=== PATIENT | female | born 2000 | race Caucasian/White ===

== ENCOUNTER → 2020-02-07 16:10 | Outpatient (CLI) | payer OTHER, MEDICAID, SELFPAY ==
[2020-02-07 16:40] LABS: Appearance Urine UA CLEAR; Bilirubin Urine UA NEGATIVE (NEGATIVE); Color Urine UA YELLOW; Glucose Urine UA NEGATIVE (Negative); Ketones Urine UA NEGATIVE (NEGATIVE); Leukocyte Esterase Urine UA 1+ (NEGATIVE); Nitrite Urine UA NEGATIVE (Negative); Occult Blood Urine UA TRACE-INTACT (Negative); Protein Urine UA NEGATIVE (Negative); Urobilinogen Urine UA 0.2 E.U./dL (0.2)
[2020-02-07 17:12] LABS: Bacteria Urine Many (>30); Culture Indicated Urine Specimen Cultured; RBC Urine 5-10/HPF (0-5/HPF); Squamous Epithelial Cell Urine 1-5 /HPF (0-5/HPF); Transitional Epi Cells Urine 5-10/HPF (0-5/HPF); WBC Urine 10-30/HPF (0-5/HPF)
== END ==
PROVIDERS: PCP Registered Nurse Diabetes Educator; Referring Provider Nurse Practitioner; Visit Provider Nurse Practitioner
DX: R30.0 Dysuria (principal)
CPT/HCPCS: 81001; 87086

== ENCOUNTER → 2020-03-19 12:04 | Outpatient (CLI) | payer OTHER, MEDICAID, SELFPAY ==
[2020-03-19 13:47] LABS: TSH w/ Reflex to FT4 0.93 uIU/mL (0.47-4.68)
[2020-03-22 07:09] LABS: Alder IgE <0.10 kU/L (Class 0); Alternaria alternata IgE <0.10 kU/L (Class 0); Aspergillus fumigatus IgE <0.10 kU/L (Class 0); Box Elder IgE <0.10 kU/L (Class 0); Cladosporium herbarum IgE <0.10 kU/L (Class 0); Cockroach IgE <0.10 kU/L (Class 0); Cottonwood IgE <0.10 kU/L (Class 0); D farinae IgE 5.85 kU/L (Class IV); D pteronyssinus IgE 7.44 kU/L (Class IV); Dog Dander IgE <0.10 kU/L (Class 0); Elm Tree IgE <0.10 kU/L (Class 0); Immunoglobulin E 34 IU/mL (6-495); Mountain Cedar IgE <0.10 kU/L (Class 0); Mouse Urine Proteins IgE <0.10 kU/L (Class 0); Nettle IgE <0.10 kU/L (Class 0); Oak Tree IgE <0.10 kU/L (Class 0); Penicillium chrysogen IgE <0.10 kU/L (Class 0); Pigweed, Common IgE <0.10 kU/L (Class 0); Ragweed, Short <0.10 kU/L (Class 0); Sheep Sorrel IgE <0.10 kU/L (Class 0); Silver Birch IgE <0.10 kU/L (Class 0); Walnut Allery IgE 0.12 kU/L (Class 0/I); White ash IgE <0.10 kU/L (Class 0)
[2020-04-20 10:24] LABS: Cat Dander IgE <0.10
== END ==
PROVIDERS: PCP Registered Nurse Diabetes Educator; Referring Provider Registered Nurse Diabetes Educator; Visit Provider Registered Nurse Diabetes Educator
DX: J30.9 Allergic rhinitis, unspecified (principal); R63.5 Abnormal weight gain
CPT/HCPCS: 36415; 82785; 84443; 86003

== ENCOUNTER → 2020-03-29 14:40 | Outpatient (CLI) | payer OTHER, MEDICAID, SELFPAY | PROVIDERS: PCP Registered Nurse Diabetes Educator; Visit Provider Physician Assistant | DX: J02.9 Acute pharyngitis, unspecified (principal) | CPT/HCPCS: 87070 ==

== ENCOUNTER → 2020-04-04 15:16 | Outpatient (CLI) | payer OTHER, MEDICAID, SELFPAY ==
[2020-04-04 17:30] LABS: Urine N gonorrhoeae NOT DETECTED
[2020-04-04 17:36] LABS: Urine Chlamydia NOT DETECTED
== END ==
PROVIDERS: PCP Registered Nurse Diabetes Educator; Referring Provider Registered Nurse Diabetes Educator; Visit Provider Registered Nurse Diabetes Educator
DX: Z91.89 Other specified personal risk factors, not elsewhere classified (principal)
CPT/HCPCS: 87491; 87591

== ENCOUNTER → 2020-05-16 12:10 | Outpatient (CLI) | payer OTHER, MEDICAID, SELFPAY ==
[2020-05-17 03:36] LABS: HSV 2 IGG AB < 0.91 index (0.00-0.90)
[2020-05-17 04:13] LABS: RPR Screen Non Reactive (Non Reactive)
[2020-05-17 16:26] LABS: Hepatitis B Surface Antigen NEGATIVE s/c (NEGATIVE)
[2020-05-17 16:48] LABS: HIV 1 & 2 Ab/Ag 4th Gen Combo NEGATIVE (NEGATIVE); Hep C Virus Ab w/Reflex Quant NEGATIVE s/c (NEGATIVE)
[2020-05-17 18:48] LABS: HSV I/II IgM <0.91 Ratio (0.00-0.90)
== END ==
PROVIDERS: PCP Registered Nurse Diabetes Educator; Referring Provider Registered Nurse Diabetes Educator; Visit Provider Registered Nurse Diabetes Educator
DX: N94.9 Unspecified condition associated with female genital organs and menstrual cycle (principal); Z72.51 High risk heterosexual behavior; Z78.9 Other specified health status
CPT/HCPCS: 36415; 86592; 86694; 86695; 86696; 86803; 87340; 87389

== ENCOUNTER → 2020-05-24 12:43 | Outpatient (CLI) | payer OTHER, MEDICAID, SELFPAY | PROVIDERS: PCP Registered Nurse Diabetes Educator; Visit Provider Specialist | DX: R30.0 Dysuria (principal) | CPT/HCPCS: 87077; 87086; 87186 ==

== ENCOUNTER → 2020-07-14 13:04 | Outpatient (CLI) | payer OTHER, MEDICAID, SELFPAY | PROVIDERS: PCP Registered Nurse Diabetes Educator; Visit Provider Physician Assistant | DX: R30.0 Dysuria (principal) | CPT/HCPCS: 87077; 87086; 87186 ==

== ENCOUNTER → 2020-12-05 11:14 | Outpatient (CLI) | payer OTHER, MEDICAID, SELFPAY ==
[2020-12-05 12:03] LABS: Hematocrit 39.7 % (36-46); Hemoglobin 13.6 g/dL (12.0-16.0); Mean Corpuscular HGB Conc 34.1 % (30-36); Mean Corpuscular Hemoglobin 33.6 PG (26-34); Mean Corpuscular Volume 98.4 fL (80-100); Platelet Count 287 X10^3/uL (150-400); Red Blood Cell Count 4.04 X10^6/uL (4.0-5.2); Red Cell Distribution Width 12.5 % (11.6-14.8); White Blood Cell Count 8.4 X10^3/uL (4.5-11.0)
[2020-12-05 12:14] LABS: Alanine Aminotransferase 13 IU/L (<35); Albumin 4.4 g/dL (3.5-5.0); Albumin Globulin Ratio 1.5 (1.0-2.8); Alkaline Phosphatase 81 U/L (38-126); Aspartate Aminotransferase 23 IU/L (14-36); BUN Creatinine Ratio 22.9 (6-22); Bilirubin Total 0.1 mg/dL (0.2-1.3); Blood Urea Nitrogen 16 mg/dL (7-17); Calcium 9.6 mg/dL (8.4-10.2); Carbon Dioxide 27 mmol/L (22-32); Chloride 105 mmol/L (98-107); Estimated Glomerular Filt Rate > 60.0 mL/min (>60); Globulin 2.9 g/dL (1.7-4.1); Glucose 89 mg/dL (70-100); HEMOLYSIS < 15 (0-50); Potassium 4.3 mmol/L (3.4-5.1); Sodium 140 mmol/L (137-145); Total Protein 7.3 g/dL (6.3-8.2)
== END ==
PROVIDERS: PCP Registered Nurse Diabetes Educator; Referring Provider Registered Nurse Diabetes Educator; Visit Provider Registered Nurse Diabetes Educator
DX: I49.8 Other specified cardiac arrhythmias (principal); Z51.81 Encounter for therapeutic drug level monitoring
CPT/HCPCS: 36415; 80053; 85027

== ENCOUNTER → 2021-01-16 08:41 | Outpatient (CLI) | payer OTHER, MEDICAID, SELFPAY ==
--- NOTE | 2021-01-16 08:43 | DI.RAD.S_ITS ---
PROCEDURE: XR CERVICAL SPINE 2V OR 3V INDICATIONS: neck pain, no trauma TECHNIQUE: 3 view(s) of the cervical spine were acquired. COMPARISON: None. FINDINGS: Bones: No fractures or dislocations to the T1 level. The lateral masses of C1 appear intact on the odontoid view. No suspicious bony lesions. Loss of lordosis which could be related to muscle spasm, rigidity or simply positional. Soft tissues: No prevertebral soft tissue swelling. IMPRESSION: Loss of lordosis; otherwise normal C-spine. Dictated by: Obdulio Harvey [facility] Interpreted: Luis Wu MD on 01/16/2021 at 12:26 Transcribed by: [email or web address] on 01/16/2021 at 12:26 Approved by: Luis Wu M.D. on 01/16/2021 at 14:53
== END ==
PROVIDERS: PCP Registered Nurse Diabetes Educator; Referring Provider Registered Nurse Diabetes Educator; Visit Provider Registered Nurse Diabetes Educator
DX: M54.2 Cervicalgia (principal)
CPT/HCPCS: 72040

== ENCOUNTER → 2021-05-23 12:03 | Outpatient (CLI) | payer OTHER, MEDICAID, SELFPAY ==
[2021-05-23 13:15] LABS: Alanine Aminotransferase 13 IU/L (<35); Albumin 4.7 g/dL (3.5-5.0); Albumin Globulin Ratio 1.9 (1.0-2.8); Alkaline Phosphatase 73 U/L (38-126); Aspartate Aminotransferase 23 IU/L (14-36); BUN Creatinine Ratio 17.4 (6-22); Bilirubin Total 0.2 mg/dL (0.2-1.3); Blood Urea Nitrogen 12 mg/dL (7-17); Calcium 9.8 mg/dL (8.4-10.2); Carbon Dioxide 30 mmol/L (22-32); Chloride 105 mmol/L (98-107); Estimated Glomerular Filt Rate > 60.0 mL/min (>60); Globulin 2.5 g/dL (1.7-4.1); Glucose 83 mg/dL (70-100); HEMOLYSIS < 15 (0-50); Potassium 4.7 mmol/L (3.4-5.1); Sodium 141 mmol/L (137-145); Total Protein 7.2 g/dL (6.3-8.2)
[2021-05-23 13:29] LABS: Free T4, Direct Thyroxine 0.91 ng/dL (0.78-2.19)
[2021-05-23 13:43] LABS: Thyroid Stimulating Hormone 1.55 uIU/mL (0.47-4.68)
== END ==
PROVIDERS: PCP Registered Nurse Diabetes Educator; Referring Provider Nurse Practitioner Psychiatric/Mental Health; Visit Provider Nurse Practitioner Psychiatric/Mental Health
DX: Z51.81 Encounter for therapeutic drug level monitoring (principal); Z79.899 Other long term (current) drug therapy
CPT/HCPCS: 36415; 80053; 84439; 84443

== ENCOUNTER → 2021-07-13 10:43 | Outpatient (CLI) | payer OTHER, MEDICAID, SELFPAY | PROVIDERS: PCP Registered Nurse Diabetes Educator; Visit Provider Physician Assistant | DX: N89.8 Other specified noninflammatory disorders of vagina (principal) | CPT/HCPCS: 81002; 81025; 87210 ==

== ENCOUNTER → 2022-01-29 08:59 | Outpatient (CLI) | payer OTHER, MEDICAID, SELFPAY ==
[2022-01-31 13:09] LABS: Chlamydia trachomatis Negative (Negative); Mycoplasma genitalium Negative (Negative); Neisseria gonorrhoeae Negative (Negative)
== END ==
PROVIDERS: PCP Registered Nurse Diabetes Educator; Visit Provider Specialist
DX: Z11.3 Encounter for screening for infections with a predominantly sexual mode of transmission (principal)
CPT/HCPCS: 81002; 87210; 87491; 87563; 87591

== ENCOUNTER → 2022-04-14 11:02 | Outpatient (CLI) | payer OTHER, MEDICAID, SELFPAY ==
[2022-04-14 11:24] LABS: COVID19 -Nasal RAPID Negative (Negative)
== END ==
PROVIDERS: PCP Registered Nurse Diabetes Educator; Visit Provider Obstetrics & Gynecology
DX: Z20.822 Contact with and (suspected) exposure to COVID-19 (principal); Z01.812 Encounter for preprocedural laboratory examination
CPT/HCPCS: 87635; C9803

== ENCOUNTER → 2022-09-23 10:55 | Outpatient (CLI) | payer OTHER, MEDICAID, SELFPAY | PROVIDERS: PCP Registered Nurse Diabetes Educator; Visit Provider Family Medicine | DX: N89.8 Other specified noninflammatory disorders of vagina (principal) | CPT/HCPCS: 81002; 81025; 87210 ==

== ENCOUNTER → 2023-02-04 16:20 | Outpatient (CLI) | payer OTHER, MEDICAID, SELFPAY ==
--- NOTE | 2023-02-04 16:23 | DI.RAD.S_ITS ---
PROCEDURE: XR KNEE LT 3V INDICATIONS: left knee pain TECHNIQUE: 2 views of the knee were acquired. COMPARISON: None. FINDINGS: Bones: No fractures or dislocations. No suspicious bony lesions. Soft tissues: Small No joint effusion. No suspicious soft tissue calcifications. IMPRESSION: Small knee joint effusion, without displaced fracture. Dictated by: Norman Sung M.D. on 02/05/2023 at 8:54 Approved by: Norman Sung M.D. on 02/05/2023 at 8:54
== END ==
PROVIDERS: PCP Registered Nurse Diabetes Educator; Referring Provider Nurse Practitioner Family; Visit Provider Nurse Practitioner Family
DX: M25.562 Pain in left knee (principal); M25.462 Effusion, left knee
CPT/HCPCS: 73562

== ENCOUNTER → 2023-06-02 08:34 | Outpatient (CLI) | payer OTHER, MEDICAID, SELFPAY | PROVIDERS: PCP Registered Nurse Diabetes Educator; Visit Provider Physician Assistant | DX: R30.0 Dysuria (principal) | CPT/HCPCS: 81002; 81025; 87086 ==

== ENCOUNTER → 2023-10-27 09:31 | Outpatient (CLI) | payer OTHER, MEDICAID, SELFPAY ==
[2023-10-27 10:54] LABS: Add Manual Diff / Slide Review NO; Basophils Absolute Auto 0 /uL (0-100); Basophils Percent Auto 0.6 % (0-2); Eosinophils Absolute Auto 200 /uL (0-450); Eosinophils Percent Auto 2.4 % (2-4); Hematocrit 39.1 % (36-46); Hemoglobin 13.3 g/dL (12.0-16.0); Lymphocytes Absolute Auto 1400 /uL (1100-4500); Lymphocytes Percent Auto 20.3 % (25-40); Mean Corpuscular HGB Conc 33.9 % (30-36); Mean Corpuscular Hemoglobin 33.2 PG (26-34); Mean Corpuscular Volume 98.1 fL (80-100); Monocytes Absolute Auto 400 /uL (0-900); Neutrophils Absolute Auto 4900 /uL (1500-7000); Neutrophils Percent Auto 70.7 % (50-75); Platelet Count 310 X10^3/uL (150-400); Red Blood Cell Count 3.99 X10^6/uL (4.0-5.2); Red Cell Distribution Width 12.7 % (11.6-14.8); White Blood Cell Count 6.9 X10^3/uL (4.5-11.0)
[2023-10-27 11:12] LABS: Alanine Aminotransferase 12 IU/L (<35); Albumin 4.4 g/dL (3.5-5.0); Albumin Globulin Ratio 1.4 (1.0-2.8); Alkaline Phosphatase 70 U/L (38-126); Aspartate Aminotransferase 25 IU/L (14-36); Bilirubin Total 0.4 mg/dL (0.2-1.3); Blood Urea Nitrogen 10 mg/dL (7-17); Calcium 10.2 mg/dL (8.4-10.2); Carbon Dioxide 26 mmol/L (22-32); Chloride 110 mmol/L (98-107); Cholesterol 144 mg/dL (140-199); Estimated Glomerular Filt Rate > 60 mL/min (>60); Globulin 3.1 g/dL (1.7-4.1); Glucose 101 mg/dL (70-100); HDL Cholesterol 65 mg/dL (40-60); HEMOLYSIS < 15 (0-50); LDL Cholesterol Calculated 65 mg/dL (<100); Sodium 141 mmol/L (137-145); Total Protein 7.5 g/dL (6.3-8.2); Triglycerides 70 mg/dL (35-150)
[2023-10-27 11:54] LABS: Hemoglobin A1C% w Est Avg Glu 4.7 % (4.0-6.0)
[2023-10-27 12:03] LABS: TSH w/ Reflex to FT4 2.92 uIU/mL (0.47-4.68)
== END ==
PROVIDERS: PCP Registered Nurse Diabetes Educator; Referring Provider Psychiatry & Neurology Psychiatry; Visit Provider Psychiatry & Neurology Psychiatry
DX: F25.0 Schizoaffective disorder, bipolar type (principal); F41.9 Anxiety disorder, unspecified; F44.9 Dissociative and conversion disorder, unspecified; Q86.0 Fetal alcohol syndrome (dysmorphic); Z51.81 Encounter for therapeutic drug level monitoring; Z79.899 Other long term (current) drug therapy
CPT/HCPCS: 36415; 80053; 80061; 80178; 83036; 84443; 85025; 99214

== ENCOUNTER → 2024-12-07 17:16 | Outpatient (CLI) | payer OTHER, SELFPAY ==
--- NOTE | 2024-12-07 17:18 | DI.RAD.S_ITS ---
PROCEDURE: XR FOOT LT MIN 3V INDICATIONS: hard painful callous under great toe MTP TECHNIQUE: 3 views of the foot were acquired. COMPARISON: None. FINDINGS: Bones: No acute fractures or dislocations. No suspicious bony lesions. Possible hammertoe deformity of the 2nd toe, not well evaluated on nonweightbearing radiographs. Posterior and plantar calcaneal enthesophytes. Soft tissues: Mild nonspecific soft tissue edema. No suspicious soft tissue calcifications. IMPRESSION: No acute osseous abnormality. Mild nonspecific soft tissue edema. Calcaneal enthesopathy. Approved by: Luis Wu M.D. on 12/08/2024 at 4:31
--- NOTE | 2024-12-07 17:18 | DI.RAD.S_ITS ---
PROCEDURE: XR ANKLE LT MIN 3V INDICATIONS: pain swelling ankle x 1 mo TECHNIQUE: 3 views of the ankle were acquired. COMPARISON: None. FINDINGS: Bones: No fractures or dislocations. Ankle mortise is normally aligned. No suspicious bony lesions. Small posterior and plantar calcaneal enthesophyte. Soft tissues: Mild soft tissue edema or tibiotalar effusion. Achilles tendon stripe appears normal. IMPRESSION: No acute osseous abnormality. Mild nonspecific soft tissue swelling. Small calcaneal enthesophytes. Approved by: Luis Wu M.D. on 12/08/2024 at 4:29
== END ==
LOC: RAD 17:18
PROVIDERS: PCP Registered Nurse Diabetes Educator; Referring Provider Physician Assistant; Visit Provider Physician Assistant
DX: M77.32 Calcaneal spur, left foot (principal); M25.579 Pain in unspecified ankle and joints of unspecified foot; L84 Corns and callosities
CPT/HCPCS: 73610; 73630

== ENCOUNTER 2025-01-20 11:59 | Emergency (ER) | payer OTHER, SELFPAY ==
[2025-01-20 12:06] VITALS: BP 109/71; PULSE 64; RESP 20; TEMP 37; O2SAT 96; BMI 24.7
--- NOTE | 2025-01-20 12:13 | DI.RAD.S_ITS ---
PROCEDURE: XR CHEST 2V INDICATIONS: pain in lungs TECHNIQUE: 2 views of the chest were acquired. COMPARISON: None. FINDINGS: Surgical changes and devices: None. Lungs and pleura: Lungs are clear. No pleural effusions or pneumothorax. Mediastinum: Mediastinal contours are normal. Heart size is normal. Bones and chest wall: No suspicious bony abnormalities. Soft tissues appear unremarkable. IMPRESSION: No acute cardiopulmonary abnormality is seen. Dictated by: Eddie Fajardo M.D. on 01/20/2025 at 13:23 Approved by: Eddie Fajardo M.D. on 01/20/2025 at 13:24
[2025-01-20 15:37] VITALS: BP 101/72; PULSE 56; RESP 16; O2SAT 100
[2025-01-20 16:09] VITALS: BP 106/65; PULSE 74; O2SAT 99
[2025-01-20 16:30] VITALS: BP 104/73; PULSE 82; O2SAT 97
--- NOTE | 2025-01-20 16:35 | ED.SOB ---
HPI - SOB/Dyspnea General Chief Complaint: Shortness of Breath/Dyspnea Stated Complaint: lung problems Time Seen by Provider: 01/20/25 16:18 History of Present Illness HPI Narrative: 24-year-old female with history of schizophrenia and anxiety, presents to the ED with her caregiver for evaluation of several months at least of pleuritic chest pains that occur with walking. She associated her pains with vaping and smoking marijuana and quit 3 months ago. Yesterday and today had some recurrence of her symptoms and this is what prompted ED visit. Pain is worse she says with taking a deep breath. She feels pain in the R chestwall/back that is also worse with movement. She denies any shortness of breath. Denies any acute respiratory infectious symptoms such as cough runny nose or sore throat. Denies history of DVT or PE, lower extremity swelling or edema. She does have an appointment with her doctor next week regarding this issue Related Data Home Medications Medication Instructions Recorded Confirmed levonorgestrel 21 mcg/24 hr (up to intrauterine 05/24/20 12/08/24 8 years) 52 mg intrauterine device (Mirena) loratadine 10 mg tablet mg PO 07/25/24 12/08/24 midodrine 5 mg tablet 5 mg PO DAILY 09/06/24 12/08/24 Previous Rx's Medication Instructions Recorded fluconazole 150 mg tablet 150 mg PO ONCE PRN yeast infection 10/20/22 (Diflucan) #2 tabs trazodone 50 mg tablet 50 mg PO BEDTIME PRN insomnia #90 05/05/23 tabs buspirone 30 mg tablet 30 mg PO BID #180 tabs 06/21/24 meclizine 25 mg tablet 25 mg PO TID PRN dizziness #30 tabs 07/25/24 benztropine 1 mg tablet 1 mg PO BID #180 tabs 08/02/24 lithium carbonate 300 mg tablet 600 mg (2 x 300 mg) PO BEDTIME 08/02/24 #180 tabs hydroxyzine HCl 25 mg tablet 25 mg PO QID PRN anxiety #120 tabs 10/25/24 ibuprofen 400 mg tablet 400 mg PO Q6H PRN pain #30 tabs 11/15/24 meloxicam 7.5 mg tablet 15 mg (2 x 7.5 mg) PO DAILY PRN 11/15/24 neck pain #60 tabs polyethylene glycol 3350 17 gram 17 g PO DAILY PRN constipation #30 11/15/24 oral powder packet ea fludrocortisone 0.1 mg tablet 0.2 mg (2 x 0.1 mg) PO DAILY #180 12/09/24 tabs midodrine 5 mg tablet 5 mg PO .QD #90 tabs 12/09/24 paliperidone palm (3 month) 546 546 mg (1.75 mL) IM [id number] #1.75 12/29/24 mg/1.75 mL intramuscular syringe mL olanzapine 5 mg disintegrating 5 mg PO TID PRN agitation #90 tabs 12/30/24 tablet Allergies Allergy/AdvReac Type Severity Reaction Status Date / Time latex Allergy Severe breaks out Verified 12/08/24 14:12 in bliosters and hives nitrous oxide AdvReac Severe hallucinati Verified 12/08/24 14:12 ons Review of Systems Review of Systems Narrative: Negative except as stated in HPI Patient History Medical History Neck pain Marijuana use Risk for sexually transmitted disease Weight gain, abnormal Allergic rhinitis Memory impairment Convulsive syncope POTS (postural orthostatic tachycardia syndrome) Chilblains 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 ADHD Vaginal itching Developmental coordination disorder Schizoaffective psychosis Organic mental disorder Schizophreniform disorder Intellectual disability alcohol spectrum disorder Static encephalopathy Surgical History Anesthesia Encounter for intrauterine device placement History of oral surgery History of oral surgery (~2001) Social History Smoking Status: Former smoker Smoking Status: Former smoker tobacco type: cigarettes and vaping Exam Initial Vital Signs Initial Vital Signs: Vital Signs Temperature 98.6 F 01/20/25 12:06 Pulse Rate 64 01/20/25 12:06 Respiratory Rate 20 01/20/25 12:06 Blood Pressure 109/71 01/20/25 12:06 Pulse Oximetry 96 01/20/25 12:06 Oxygen Delivery Method Room Air 01/20/25 12:06 Constitutional: Well appearing, no acute distress Head: NCAT Cardiovascular: RRR, no murmur or rub MSK: no reproducible chest wall or back pain Pulmonary: CTA bilaterally, no respiratory distress Abdominal: soft, non-tender Extremities: No LE edema Skin: warm and dry, no diaphoresis Neurological: Alert and oriented x3 Course Orders Ordered: ED Orders 01/20/25 12:13 XR chest 2V Stat Vital Signs Vital signs: Vital Signs - 8 hr 01/20/25 12:06 01/20/25 15:37 01/20/25 16:09 Temperature 98.6 F Pulse Rate 64 56 L 74 Respiratory Rate 20 16 Blood Pressure 109/71 101/72 Pulse Oximetry 96 100 99 Oxygen Delivery Method Room Air Room Air 01/20/25 16:09 Temperature Pulse Rate Respiratory Rate Blood Pressure 106/65 Pulse Oximetry Oxygen Delivery Method MDM - SOB/Dyspnea MDM Narrative Medical decision making narrative: 24-year-old female presents with intermittent chest pains she associates with walking. She walks long distances and feels the pain with taking a breath or moving. Symptoms have been going on for months. Here in ED she has a normal exam. No clinical signs of DVT. Chest x-ray is obtained prior to my evaluation of the patient and within normal limits. I do not appreciate a murmur. No recent infectious symptoms I would be concerning for pericarditis or myocarditis. Chronicity of symptoms less suggestive of pulmonary embolism. Patient lack of risk factors less concerning for ACS. In any case, did offer to broaden workup today including laboratories including troponin, EKG. Patient declines, rather, would like to follow up with her family doctor next week regarding this issue. Patient discharged in the care of her caregiver. Discharge Plan Departure Patient Disposition: Home Clinical Impression: Chest pain Instructions: DI for Chest Pain Activity Restrictions/Additional Instructions: I am not sure what is causing your chest pain. Chest x-ray today was within normal limits. Please keep your appointment with your family doctor next week regarding your symptoms. Since we are foregoing any further testing today I do recommend return to the ED if her symptoms seem to be worsening or more frequent/more persistent. In general for pain you may use Tylenol and ibuprofen. You may find topical therapy such as heat/ice, menthol, lidocaine or diclofenac ointment helpful Prescriptions: No Action trazodone 50 mg tablet 50 mg PO BEDTIME PRN (Reason: insomnia) Qty: 90 3RF hydroxyzine HCl 25 mg tablet 25 mg PO QID PRN (Reason: anxiety) Qty: 120 2RF midodrine 5 mg tablet 5 mg PO DAILY paliperidone palm (3 month) 546 mg/1.75 mL syringe 546 mg IM [id number] Qty: 1.75 3RF buspirone 30 mg tablet 30 mg PO BID Qty: 180 3RF benztropine 1 mg tablet 1 mg PO BID Qty: 180 3RF lithium carbonate 300 mg tablet 600 mg PO BEDTIME Qty: 180 3RF Rx Instructions: Always take with food. fludrocortisone 0.1 mg tablet 0.2 mg PO DAILY Qty: 180 1RF midodrine 5 mg tablet 5 mg PO .QD Qty: 90 1RF Rx Instructions: do not give last dose of day after 6PM or within 4 hrs of bedtime olanzapine 5 mg tablet,disintegrating 5 mg PO TID PRN (Reason: agitation) Qty: 90 0RF fluconazole [Diflucan] 150 mg tablet 150 mg PO ONCE PRN (Reason: yeast infection) Qty: 2 12RF Rx Instructions: as a single dose. can repeat in 3 days if needed. loratadine 10 mg tablet PO meclizine 25 mg tablet 25 mg PO TID PRN (Reason: dizziness) Qty: 30 2RF Rx Instructions: Do not take with hydroxyzine Mirena 20 mcg/24 hours (5 yrs) 52 mg intrauterine device intrauterine polyethylene glycol 3350 17 gram powder in packet 17 g PO DAILY PRN (Reason: constipation) Qty: 30 0RF meloxicam 7.5 mg tablet 15 mg PO DAILY PRN (Reason: neck pain) Qty: 60 2RF Rx Instructions: DO NOT TAKE CONCURRENTLY WITH IBUPROFEN ibuprofen 400 mg tablet 400 mg PO Q6H PRN (Reason: pain) Qty: 30 1RF Rx Instructions: DO NOT TAKE CONCURRENTLY WITH MELOXICAM Referrals: Mahad Jordan ARNP [Primary Care Provider] - Stand Alone Forms: Patient Portal/API/Survey
[2025-01-20 17:00] VITALS: PULSE 74; O2SAT 97
[2025-01-20 17:25] VITALS: RESP 18
== END 2025-01-20 17:26 | disposition home or self-care (01) ==
PROVIDERS: Emergency Provider Student in an Organized Health Care Education/Training Program; PCP Registered Nurse Diabetes Educator
DX: R07.9 Chest pain, unspecified (principal); Z87.891 Personal history of nicotine dependence
CPT/HCPCS: 71046; 99281; 99283